=== PATIENT | male | born 1975 | race Caucasian/White ===

== ENCOUNTER 2019-08-26 15:51 | Emergency (ER) | payer BC ==
[~2019-08-26] VITALS: Ht 175.3 cm; Wt 81.6 kg
--- NOTE | 2019-08-26 17:03 | NUR ---
PATIENT IN ROOM IN BED. AWAKE AND ALERT. NO S/S OF ACUTE DISTRESS. RESP EVEN AND NONLABORED. PATIENT CHANGED INTO PAPER SCRUBS. ALL PERSONAL BELONGINGS GIVEN TO PT'S GIRLFRIEND.
[2019-08-26 17:27] LABS: BASOPHILS # (AUTO) 0.1 (0.0-0.1); BASOPHILS % 0.8 % (0.0-1.0); EOSINOPHILS % 0.1 % (0.0-6.0); HEMATOCRIT 43.9 % (38.2-49.6); HEMOGLOBIN 15.3 g/dL (14.0-18.0); LYMPHOCYTES # (AUTO) 1.6 (1.0-3.2); LYMPHOCYTES % 16.7 % (18.0-39.1); MEAN CORPUSCULAR HEMOGLOBIN 33.6 pg (28-32); MEAN CORPUSCULAR HGB CONC 34.9 g/dL (31-35); MEAN CORPUSCULAR VOLUME 96.5 fL (81-99); MONOCYTES # (AUTO) 0.7 (0.2-0.8); NEUTROPHILS # (AUTO) 7.3 (2.1-6.9); PLATELET COUNT 208 x10e3/uL (140-360); RED BLOOD COUNT 4.55 x10e6/uL (4.3-5.7); RED CELL DISTRIBUTION WIDTH 11.8 % (11.7-14.4)
[2019-08-26 17:48] LABS: ALANINE AMINOTRANSFERASE 85 IU/L (0-55); ALBUMIN 4.7 g/dL (3.5-5.0); ALBUMIN/GLOBULIN RATIO 1.1 (0.8-2.0); ALKALINE PHOSPHATASE 72 IU/L (40-150); ANION GAP 33.5 mmol/L (8-16); BLOOD UREA NITROGEN 16 mg/dL (7-26); CALCIUM 9.1 mg/dL (8.4-10.2); CARBON DIOXIDE 11 mmol/L (22-29); CHLORIDE 97 mmol/L (98-107); GLUCOSE 67 mg/dL (74-118); POTASSIUM 4.5 mmol/L (3.5-5.1); SODIUM 137 mmol/L (136-145)
[2019-08-26 17:52] LABS: ACETAMINOPHEN < 3 ug/mL (10-30); SALICYLATE < 5.0 mg/dL (0-30)
--- NOTE | 2019-08-26 18:10 | NUR ---
patient in room in bed. 1:1 sitter at bedside. pt's girlfriend at bedside. no s/s of acute distress. resp even and nonlabored. no c/o pain. reports feeling nausea. received order for meds and entered into chart.
[2019-08-26 18:12] LABS: BUN/CREATININE RATIO 18 (6-25); CREATININE, SERUM 0.89 mg/dL (0.72-1.25); EST GLOMERULAR FILTRATION RATE > 60 ML/MIN (60-)
[2019-08-26] MEDS ORDERED: ONDANSETRON HCL 4 MG ORAL DISINTEGRATING TAB PO NR (18:30)
[2019-08-26] MEDS ORDERED: SODIUM CHLORIDE 0.9% 1000ML 1,000 ML IV ONE (19:30)
--- NOTE | 2019-08-26 19:33 | NUR ---
visitor in room with patient, sitter on bedside, all suicide precautions are in place
--- NOTE | 2019-08-26 20:44 | NUR ---
patient in bed with sitter sleeping
[2019-08-26 20:56] LABS: AMPHETAMINES SCREEN,URINE NEGATIVE (NEGATIVE); BENZODIAZEPINES SCREEN,URINE POSITIVE (NEGATIVE); PHENCYCLIDINE SCREEN,URINE NEGATIVE (NEGATIVE)
--- NOTE | 2019-08-26 23:29 | NUR ---
mat team at bedside assessing patient
--- NOTE | 2019-08-27 00:36 | NUR ---
mat team left facility, awaiting call for [facility] for transfer
[2019-08-27] MEDS ORDERED: ONDANSETRON HCL 4 MG ORAL DISINTEGRATING TAB PO ONE (07:00)
--- NOTE | 2019-08-27 07:25 | NUR ---
report given to timbo donald
--- NOTE | 2019-08-27 10:30 | NUR ---
Mee called to evaluate patient for trasport to Psych Facility. Meal tray ordered.
--- NOTE | 2019-08-27 10:41 | NUR ---
Introduced myself to patient, informed him we were working on his transfer. Call placed to MAT Team, spoke with Michael, she states he is pending a bed for [facility], asking for medical clearance. Spoke with Montez VIZCARRA in ER, states the patient has already been medically cleared, called back MAT Team, karl Crawford this time, informed her labs they have are current, patient is stable per , she is looking at another facility instead of [facility] as well. Addendum: 08/27/19 at 1047 by Mee Hayes CM Per Yvette at [facility], [facility] is the facility to be used d/t patient's lack of mental health benefits. Per Yvette, waiting on a bed, nothing else needed now, CM to follow up this afternoon when there are likely to be dc's at facility
--- NOTE | 2019-08-27 13:32 | NUR ---
Spoke to patient and his friend meka at bedside. They are wanting to know when he will be transferred. Discussed hernandez options as well being that he does not have psyc benefits. Informed them we are still waiting on a bed. They ask if he could go home and then go to psyc. Meka says, "he is not suicidal". Mr Bunch says, "well i still want to talk to someone". Notified MAT team and spoke with Gonzalo. They will come out and reevaluate. Also spoke to James with [facility], he states it is around 800-1000 dollars a day but don't quote him on that.
--- NOTE | 2019-08-27 16:25 | NUR ---
MAT team came Ms. Lance and spoke to patient.
== END 2019-08-27 18:41 | disposition home or self-care (01) ==
LOC: ER 15:51
DX: R45.851 Suicidal ideations (principal); F10.20 Alcohol dependence, uncomplicated; F41.9 Anxiety disorder, unspecified; F32.9 Major depressive disorder, single episode, unspecified
CPT/HCPCS: 36415; 80053; 80307; 80320; 80329 ×2; 85025; 99283; Q0162 ×2